=== PATIENT | female | born 1985 ===

== ENCOUNTER 2017-08-07 09:00 | Emergency (ER) | payer OTHER ==
[2017-08-07 09:11] VITALS: O2SAT 98
[2017-08-07 09:12] VITALS: BMI 24.2
[2017-08-07 09:41] LABS: HCG,QUALITATIVE URINE NEGATIVE (NEGATIVE)
[2017-08-07 09:45] LABS: SQUAMOUS EPITHIAL 1 /hpf (0-5); URINE BILIRUBIN NEGATIVE (NEGATIVE); URINE BLOOD NEGATIVE (NEGATIVE); URINE CLARITY Clear (Clear); URINE COLOR Straw (YELLOW); URINE GLUCOSE (UA) NORMAL (Normal); URINE LEUKOCYTE ESTERASE NEG Leu/uL (Negative); URINE PROTEIN NEGATIVE (NEGATIVE); URINE UROBILINOGEN NORMAL mg/dL (0.2-1.0)
[2017-08-07] MEDS ORDERED: Sodium Chloride 0.9% 1,000 ML IV ONE (10:10)
[2017-08-07] MEDS ORDERED: DiphenhydrAMINE 50 mg/ml Inj IVP STA (10:11)
[2017-08-07] MEDS ORDERED: DiphenhydrAMINE 50 mg/ml Inj ONE (10:24)
[2017-08-07] MEDS ORDERED: Sodium Chloride 0.9% 1,000 ML ONE (10:24)
--- NOTE | 2017-08-07 10:31 | RAD ---
PROCEDURE: Radiographs of the chest and abdomen (obstructive series) HISTORY: Abdominal pain and nausea. COMPARISON: No prior. TECHNIQUE: AP radiograph of the chest, with upright and supine radiographs of the abdomen. FINDINGS: CHEST: Lungs: Clear. Cardiovascular: Normal size heart. No pulmonary vascular congestion. Pleura: No pleural fluid. No pneumothorax. Other findings: None. ABDOMEN AND PELVIS: Bowel: Unremarkable bowel gas pattern. No evidence of mechanical obstruction. Free air: None. Bones: Minor levoscoliosis centered at the at L3-L4 level. The. Other findings: None. IMPRESSION: Unremarkable radiographs of chest and abdomen. No evidence of mechanical bowel obstruction.
--- NOTE | 2017-08-07 10:46 | C.PDOC ---
History Of Present Illness The patient reports several month history of intermittent dizziness which is associated with headache, nausea, and vomiting. Patient reports that the dizziness is worsened with head movement and described as the room spinning. The patient also reports 2 week history of urinary urgency and frequency with some lower abdominal pain. Denies fever, head trauma, diarrhea, back pain, vision changes, numbness, weakness. Time Seen by Provider: 08/07/17 09:13 Chief Complaint (Nursing): Headache History Per: Patient History/Exam Limitations: no limitations Onset/Duration Of Symptoms: Intermittent Episodes Current Symptoms Are (Timing): Still Present Quality: "Pain" Recent travel outside of the [place]: No Past Medical History Reviewed: Historical Data, Nursing Documentation, Vital Signs Vital Signs: Last Vital Signs Temp 98 F 08/07/17 13:06 Pulse 78 08/07/17 13:06 Resp 18 08/07/17 13:06 BP 106/74 08/07/17 13:06 Pulse Ox 98 08/07/17 13:06 - Medical History PMH: No Chronic Diseases Surgical History: No Surg Hx Family History: States: No Known Family Hx - Social History Hx Alcohol Use: No Hx Substance Use: No - Immunization History Hx Tetanus Toxoid Vaccination: No Hx Influenza Vaccination: No Review Of Systems Except As Marked, All Systems Reviewed And Found Negative. Physical Exam - Physical Exam Appears: Non-toxic, No Acute Distress Skin: Normal Color, Warm, No Rash Head: Atraumatic, Normacephalic Eye(s): bilateral: Normal Inspection, PERRL, EOMI Ear(s): Bilateral: Normal Oral Mucosa: Moist Throat: No Erythema, No Exudate Neck: Normal ROM, Supple Chest: Symmetrical, No Tenderness Cardiovascular: Rhythm Regular, No Friction Rub, No Murmur Respiratory: Normal Breath Sounds, No Rales, No Rhonchi, No Stridor, No Wheezing Gastrointestinal/Abdominal: Bowel Sounds, Soft, No Tenderness, No Guarding, No Rebound, No Hernia Back: Normal Inspection, No CVA Tenderness Extremity: Normal ROM, No Swelling Neurological/Psych: Oriented x3, Normal Speech, Normal Motor Gait: Steady ED Course And Treatment - Laboratory Results Result Diagrams: 08/07/17 10:40 08/07/17 10:40 O2 Sat by Pulse Oximetry: 98 (on RA) Pulse Ox Interpretation: Normal Medical Decision Making Medical Decision Making: On r-exam, the patient reports improvement of symptoms. Lungs are CTA, heart is RRR, abdomen is soft, non-tender and tolerating po well. Ambulatory in the ED with steady gait. Disposition - Disposition Referrals: [facility] [Outside] Disposition: HOME/ ROUTINE Disposition Time: 12:54 Condition: GOOD Additional Instructions: Follow up with the medical doctor within 1-2 days. Return if worsened. Prescriptions: Meclizine HCl 25 mg PO TID PRN #21 tablet PRN Reason: Dizziness Instructions: Vertigo (a Type of Dizziness) Forms: [employer] ([place] Islander) Print Language: EQUATORIAL GUINEAN - Clinical Impression Clinical Impression: Vertigo
[2017-08-07 10:48] LABS: BASO % 0.6 % (0.0-2.0); EOS % 0.7 % (0.0-4.0); HEMOGLOBIN 13.3 g/dL (11.0-16.0); LYMPH # 2.1 K/uL (1.0-4.3); LYMPH % 30.9 % (20.0-40.0); MEAN CELL VOLUME 85.5 fL (81.0-99.0); MEAN CORPUSCULAR HEMOGLOBIN 29.9 pg (27.0-31.0); MEAN PLATELET VOLUME 7.9 fL (7.2-11.7); MONO # 0.3 K/uL (0.0-0.8); MONO % 4.6 % (0.0-10.0); NEUT # 4.2 K/uL (1.8-7.0); NEUT % 63.2 % (50.0-75.0); RBC 4.44 Mil/uL (3.80-5.20); RED CELL DISTRIBUTION WIDTH 13.4 % (11.5-14.5); WHITE BLOOD COUNT 6.7 K/uL (4.8-10.8)
[2017-08-07 11:07] LABS: ALB/GLOB RATIO 1.3 (1.0-2.1); ALBUMIN 4.5 g/dL (3.5-5.0); ALT/SGPT 17 U/L (9-52); AST/SGOT 26 U/L (14-36); BLOOD UREA NITROGEN 13 mg/dL (7-17); CALCIUM 9.5 mg/dl (8.6-10.4); GFR AFRICAN-AMERICAN > 60; GFR NON-AFRICAN AMERICAN > 60; LIPASE 100 U/L (23-300)
--- NOTE | 2017-08-07 12:00 | CT ---
PROCEDURE: CT scan brain dated 08/07/2017 HISTORY: Dizziness, headache several months COMPARISON: No prior study available for comparison TECHNIQUE: Axial computed tomography images were obtained through the head/brain without intravenous contrast. Radiation dose: Total exam DLP = mGy-cm. This CT exam was performed using one or more of the following dose reduction techniques: Automated exposure control, adjustment of the mA and/or kV according to patient size, and/or use of iterative reconstruction technique. . . FINDINGS: HEMORRHAGE: No intracranial hemorrhage. BRAIN: No mass effect or edema. No atrophy or chronic microvascular ischemic changes. VENTRICLES: No obstructive the hydrocephalus. CALVARIUM: There are no acute calvarial fractures. PARANASAL SINUSES: Polypoid mucous retention cysts are seen both maxillary antra. MASTOID AIR CELLS: Unremarkable as visualized. No inflammatory changes. OTHER FINDINGS: None. IMPRESSION: No acute intracranial hemorrhage.
[2017-08-07 13:07] VITALS: BP 106/74; PULSE 78; RESP 18; TEMP 98
== END 2017-08-07 13:07 | disposition home or self-care (01) ==
LOC: C.ER 09:00
DX: R42 Dizziness and giddiness (principal)
CPT/HCPCS: 70450; 74022; 80053; 81001; 83690; 84703; 85025; 96374; 96375; 99285; J1200; J1885; J2765; J7040

== ENCOUNTER 2017-09-18 11:36 | Emergency (ER) | payer OTHER ==
[2017-09-18 11:36] VITALS: BMI 24.2
[2017-09-18 11:54] VITALS: O2SAT 98
[2017-09-18 12:30] LABS: HCG,QUALITATIVE URINE NEGATIVE (NEGATIVE)
[2017-09-18 12:33] LABS: SQUAMOUS EPITHIAL 3 /hpf (0-5); URINE BACTERIA RARE (<OCC); URINE BILIRUBIN NEGATIVE (NEGATIVE); URINE BLOOD 2+ (NEGATIVE); URINE CLARITY Clear (Clear); URINE COLOR Yellow (YELLOW); URINE GLUCOSE (UA) NORMAL (Normal); URINE LEUKOCYTE ESTERASE NEG Leu/uL (Negative); URINE PROTEIN NEGATIVE (NEGATIVE); URINE UROBILINOGEN NORMAL mg/dL (0.2-1.0)
--- NOTE | 2017-09-18 13:17 | C.PDOC ---
History Of Present Illness Patient presents to ED with c/o intermittent dizziness since yesterday associated with ear pain, tingling in hands and blurry vision. Patient was previously seen at ED on 08/07/17 for same symptoms and diagnosed with Vertigo. Patient denies abdominal pain, vomiting, head injury or any other complaints at this time. Time Seen by Provider: 09/18/17 12:07 Chief Complaint (Nursing): Dizziness/Lightheaded History Per: Patient History/Exam Limitations: no limitations Onset/Duration Of Symptoms: Days Current Symptoms Are (Timing): Still Present Past Medical History Reviewed: Historical Data, Nursing Documentation, Vital Signs Vital Signs: Last Vital Signs Temp 98.5 F 09/18/17 14:30 Pulse 57 L 09/18/17 14:30 Resp 18 09/18/17 14:30 BP 100/60 09/18/17 14:30 Pulse Ox 98 09/18/17 14:33 - Medical History PMH: No Chronic Diseases Surgical History: No Surg Hx Family History: States: No Known Family Hx - Social History Hx Alcohol Use: No Hx Substance Use: No - Immunization History Hx Tetanus Toxoid Vaccination: No Hx Influenza Vaccination: No Review Of Systems Constitutional: Negative for: Fever, Chills Eyes: Positive for: Vision Change ENT: Positive for: Ear Pain Gastrointestinal: Negative for: Nausea, Vomiting Skin: Negative for: Rash Neurological: Positive for: Dizziness. Negative for: Weakness, Numbness, Headache Physical Exam - Physical Exam Appears: Non-toxic, No Acute Distress Skin: Warm, Dry, No Rash Head: Atraumatic, Normacephalic Eye(s): bilateral: Normal Inspection (No nystagmus) Ear(s): Bilateral: Normal Oral Mucosa: Moist Throat: Normal, No Erythema, No Exudate Neck: Supple Cardiovascular: Rhythm Regular Respiratory: Normal Breath Sounds, No Rales, No Rhonchi, No Wheezing Gastrointestinal/Abdominal: Soft, No Tenderness, No Guarding, No Rebound Extremity: Normal ROM, Capillary Refill (<2 seconds) Neurological/Psych: Oriented x3, Normal Speech, Normal Cognition, Normal Motor, Normal Sensation ED Course And Treatment O2 Sat by Pulse Oximetry: 98 (RA) Pulse Ox Interpretation: Normal Progress Note: On re-exam, the patient reports improvement of symptoms. Lungs are CTA, heart is RRR, abdomen is soft, non-tender and the patient is tolerating PO well. Ambulatory in the ED with steady gait. Follow up with the medical doctor within 1-2 days. Return if worsened. Disposition - Disposition Referrals: [facility] [Outside] Disposition: HOME/ ROUTINE Disposition Time: 14:32 Condition: GOOD Additional Instructions: Follow up with the medical doctor/clinic within 1-2 days without fail. Return if worsened. 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 - Scribe Statement The provider has reviewed the documentation as recorded by the Ezequiel Dotson All medical record entries made by the Ezequiel were at my direction and personally dictated by me. I have reviewed the chart and agree that the record accurately reflects my personal performance of the history, physical exam, medical decision making, and the department course for this patient. I have also personally directed, reviewed, and agree with the discharge instructions and disposition.
[2017-09-18 14:31] VITALS: BP 100/60; PULSE 57; RESP 18; TEMP 98.5
== END 2017-09-18 14:42 | disposition home or self-care (01) ==
LOC: C.ER 11:36
DX: R42 Dizziness and giddiness (principal)

== ENCOUNTER 2017-09-25 11:30 | Emergency (ER) | payer OTHER ==
[2017-09-25 11:43] VITALS: BMI 25.4
[2017-09-25 11:48] VITALS: TEMP 98.4
[2017-09-25] MEDS ORDERED: Sodium Chloride 0.9% 1,000 ML IV ONE (13:16)
[2017-09-25] MEDS ORDERED: Sodium Chloride 0.9% 1,000 ML ONE (13:26)
[2017-09-25 13:41] LABS: EOS # 0.1 K/uL (0.0-0.7); MEAN CORPUSCULAR HEMOGLOBIN 29.8 pg (27.0-31.0); MONO # 0.4 K/uL (0.0-0.8); NEUT # 4.3 K/uL (1.8-7.0)
[2017-09-25 13:44] LABS: BASO % 0.6 % (0.0-2.0); EOS % 1.9 % (0.0-4.0); HEMOGLOBIN 13.3 g/dL (11.0-16.0); LYMPH # 1.7 K/uL (1.0-4.3); LYMPH % 25.8 % (20.0-40.0); MEAN CELL VOLUME 85.9 fL (81.0-99.0); MEAN CORPUSCULAR HGB CONC 34.7 g/dL (33.0-37.0); MEAN PLATELET VOLUME 7.7 fL (7.2-11.7); MONO % 5.8 % (0.0-10.0); NEUT % 65.9 % (50.0-75.0); RBC 4.46 Mil/uL (3.80-5.20); RED CELL DISTRIBUTION WIDTH 13.6 % (11.5-14.5); WHITE BLOOD COUNT 6.5 K/uL (4.8-10.8)
--- NOTE | 2017-09-25 14:15 | C.PDOC ---
History Of Present Illness 1y /o female presents to the ER complaining of dizziness which has been present for the past 1 week. Patient states that she feels a sensation of vertigo. Patient reports that she was evaluated in [facility] several days ago. She had negative labwork and Head CT. Patient has been taking Meclizine without relief. Denies having fever and other complaints at this time. Time Seen by Provider: 09/25/17 13:07 Chief Complaint (Nursing): Dizziness/Lightheaded History Per: Patient History/Exam Limitations: no limitations Onset/Duration Of Symptoms: Days Current Symptoms Are (Timing): Still Present Severity: Moderate Past Medical History Reviewed: Historical Data, Nursing Documentation, Vital Signs Vital Signs: Last Vital Signs Temp 98.4 F 09/25/17 15:37 Pulse 80 09/25/17 15:37 Resp 18 09/25/17 15:37 BP 118/82 09/25/17 15:37 Pulse Ox 100 09/25/17 15:37 - Medical History PMH: No Chronic Diseases Other Surgeries: Hx of surgeries Family History: States: No Known Family Hx - Social History Hx Alcohol Use: No Hx Substance Use: No - Immunization History Hx Tetanus Toxoid Vaccination: No Hx Influenza Vaccination: No Review Of Systems Except As Marked, All Systems Reviewed And Found Negative. Constitutional: Negative for: Fever, Chills Neurological: Positive for: Dizziness Physical Exam - Physical Exam Appears: Non-toxic, No Acute Distress Skin: Normal Color, Warm, Dry Head: Atraumatic, Normacephalic Eye(s): bilateral: Normal Inspection, PERRL, EOMI Nose: Normal Oral Mucosa: Moist Neck: Supple Chest: Symmetrical Cardiovascular: Rhythm Regular Respiratory: Normal Breath Sounds, No Rales, No Rhonchi, No Wheezing Gastrointestinal/Abdominal: Normal Exam, Soft, No Tenderness, No Guarding, No Rebound Neurological/Psych: Oriented x3, Normal Speech ED Course And Treatment - Laboratory Results Result Diagrams: 09/25/17 13:38 09/25/17 13:38 O2 Sat by Pulse Oximetry: 99 (RA) Pulse Ox Interpretation: Normal Medical Decision Making Medical Decision Making: dizziness/vertigo- Plan: ro metabolic infectious etiollogy --Labs --UA --Meclizine PO --Zofran IV --IV Fluids labs neg. recent head ct neg. pt states feels well for dc. Disposition - Disposition Referrals: [facility] [Outside] [facility] [Outside] Daniel Zepeda MD [Staff Provider] - Kyle Llamas MD [Staff Provider] - Disposition: HOME/ ROUTINE Disposition Time: 03:00 Condition: STABLE Additional Instructions: please follow up with specialist. return to er with worsening symptoms or concerns. Prescriptions: Meclizine [Meclizine*] 25 mg PO Q6 PRN #30 tab PRN Reason: Dizziness Instructions: Vertigo (a Type of Dizziness) (DC), Dizziness, Nonvertigo, (DC) Forms: [employer] (Pakistani) Print Language: KHMER - Clinical Impression Clinical Impression: Dizziness - Scribe Statement The provider has reviewed the documentation as recorded by the Gomezibe Neel Chi Provider Attestation: All medical record entries made by the Gomezibe were at my direction and personally dictated by me. I have reviewed the chart and agree that the record accurately reflects my personal performance of the history, physical exam, medical decision making, and the department course for this patient. I have also personally directed, reviewed, and agree with the discharge instructions and disposition.
[2017-09-25 14:26] LABS: ALB/GLOB RATIO 1.6 (1.0-2.1); ALBUMIN 4.7 g/dL (3.5-5.0); ALT/SGPT 46 U/L (9-52); AST/SGOT 36 U/L (14-36); BLOOD UREA NITROGEN 11 mg/dL (7-17); CALCIUM 9.4 mg/dl (8.6-10.4); GFR AFRICAN-AMERICAN > 60; GFR NON-AFRICAN AMERICAN > 60
[2017-09-25 15:10] LABS: SQUAMOUS EPITHIAL 1 /hpf (0-5); URINE BACTERIA RARE (<OCC); URINE BILIRUBIN NEGATIVE (NEGATIVE); URINE BLOOD NEGATIVE (NEGATIVE); URINE CLARITY Clear (Clear); URINE COLOR Yellow (YELLOW); URINE GLUCOSE (UA) NORMAL (Normal); URINE LEUKOCYTE ESTERASE NEG Leu/uL (Negative); URINE PROTEIN NEGATIVE (NEGATIVE); URINE UROBILINOGEN NORMAL mg/dL (0.2-1.0)
[2017-09-25 15:14] LABS: HCG,QUALITATIVE URINE NEGATIVE (NEGATIVE)
[2017-09-25 15:38] VITALS: BP 118/82; PULSE 80; RESP 18
[2017-09-25 21:33] VITALS: O2SAT 99
== END 2017-09-25 15:38 | disposition home or self-care (01) ==
LOC: C.ER 11:30
DX: R42 Dizziness and giddiness (principal)
CPT/HCPCS: 80053; 81001; 84703; 85025; 96361; 96374; 99285; J2405; J7030

== ENCOUNTER 2018-08-03 09:15 | Emergency (ER) | payer OTHER ==
[2018-08-03 09:16] VITALS: BMI 25.4
[2018-08-03] MEDS ORDERED: Sodium Chloride 0.9% 500 ML IV ONE (10:17)
[2018-08-03] MEDS ORDERED: Sodium Chloride 0.9% 1,000 ML ONE ×2 (10:29→11:41)
[2018-08-03 10:39] LABS: HEMOGLOBIN 12.5 g/dL (11.0-16.0); MEAN CELL VOLUME 87.1 fL (81.0-99.0); MEAN CORPUSCULAR HEMOGLOBIN 30.3 pg (27.0-31.0); MEAN CORPUSCULAR HGB CONC 34.8 g/dL (33.0-37.0); MEAN PLATELET VOLUME 7.6 fL (7.2-11.7); RBC 4.12 Mil/uL (3.80-5.20); RED CELL DISTRIBUTION WIDTH 13.4 % (11.5-14.5); WHITE BLOOD COUNT 6.3 K/uL (4.8-10.8)
[2018-08-03 10:55] LABS: ALB/GLOB RATIO 1.4 (1.0-2.1); ALBUMIN 4.4 g/dL (3.5-5.0); ALT/SGPT 22 U/L (9-52); AST/SGOT 26 U/L (14-36); BLOOD UREA NITROGEN 14 mg/dL (7-17); CALCIUM 9.2 mg/dl (8.6-10.4); GFR NON-AFRICAN AMERICAN > 60
--- NOTE | 2018-08-03 10:57 | C.PDOC ---
History Of Present Illness Patient complains of feeling dizzy and frontal headache this morning when getting her children ready for school. She describes the room spinning whenever she would stand or bend over. She reports similar symptoms last year and was di agnosed with Vertigo she does not have any more medicine. She states she has not eaten anything yet today. She denies fever, neck pain, vision changes, extremity weakness or numbness Time Seen by Provider: 08/03/18 09:51 Chief Complaint (Nursing): Dizziness/Lightheaded History Per: Patient History/Exam Limitations: no limitations Onset/Duration Of Symptoms: Hrs Current Symptoms Are (Timing): Still Present Past Medical History Reviewed: Historical Data, Nursing Documentation, Vital Signs Vital Signs: Last Vital Signs Temp 98.5 F 08/03/18 09:30 Pulse 79 08/03/18 09:30 Resp 16 08/03/18 09:30 BP 99/62 L 08/03/18 09:30 Pulse Ox 99 08/03/18 09:30 Primary Care Provider: FAMILY PROVIDER,NO - Medical History PMH: Comment Only: Migraine (DENIES 08/03/18) Surgical History: Family History: States: Unknown Family Hx - Social History Hx Alcohol Use: No Hx Substance Use: No - Immunization History Hx Tetanus Toxoid Vaccination: No Hx Influenza Vaccination: Yes Review Of Systems Constitutional: Negative for: Fever, Chills Eyes: Negative for: Vision Change Musculoskeletal: Negative for: Neck Pain Neurological: Positive for: Headache, Dizziness. Negative for: Weakness, Numbness Physical Exam - Physical Exam Appears: Non-toxic, No Acute Distress Skin: Warm, Dry, No Rash Head: Atraumatic, Normacephalic Eye(s): bilateral: Normal Inspection, PERRL, EOMI, Other (no nystagmus) Ear(s): Bilateral: Normal Nose: Normal Oral Mucosa: Moist Tongue: Normal Appearing Lips: Normal Appearing Teeth: Normal Dentition Gingiva: Normal Appearing Throat: Normal, No Erythema, No Exudate Neck: Supple Chest: Symmetrical Cardiovascular: Rhythm Regular Respiratory: Normal Breath Sounds, No Rales, No Rhonchi, No Wheezing Gastrointestinal/Abdominal: Soft, No Tenderness Extremity: Bilateral: Atraumatic, Normal Color And Temperature, Normal ROM Pulses: Left Radial: Normal, Right Radial: Normal Neurological/Psych: Oriented x3, Normal Speech, Normal Cranial Nerves, No Cerebellar Signs, Normal Motor, Normal Sensation Gait: Steady ED Course And Treatment - Laboratory Results Result Diagrams: 08/03/18 10:33 08/03/18 10:33 Lab Interpretation: No Acute Changes ECG: Interpreted By Me, Viewed By Me Interpretation Of ECG: Slight left axis deviation Rate From EC O2 Sat by Pulse Oximetry: 99 (RA) Pulse Ox Interpretation: Normal Medical Decision Making Medical Decision Making: impression: Vertigo plan: * cbc * cmp * UA * UCG * IV NS * IV Reglan Progress: Labs reviewed by me and shows no acute findings. Patient remained afebrile in no acute distress and reports feeling better. BP is still on low side. Patient states sometimes it is low. Will order additional fluids ond re-evaluate. 1244 On second re-evaluation she is seated comfortably in no distress. BP is slightly improved. Note the patient is petite in size. She reports no dizziness, headache, or vision changes at this time. She has normal neuro exam. She is ambulatory with steady gait. Patient stable for discharge with Rx Antivert Disposition Counseled Patient/Family Regarding: Diagnosis, Need For Followup, Rx Given - Disposition Referrals: [facility] [Outside] [facility] [Outside] Disposition: HOME/ ROUTINE Disposition Time: 11:33 Condition: STABLE Additional Instructions: Tienes vrtigo kirby medicamentos para el mareo segn sea necesario cada 8 horas beber lquidos y descansar Puede kirby Tylenol o Advil para cualquier dolor de rufino. 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 - Scribe Statement The provider has reviewed the documentation as recorded by the Scribe Abbey Simpson All medical record entries made by the Scribe were at my direction and personally dictated by me. I have reviewed the chart and agree that the record accurately reflects my personal performance of the history, physical exam, medical decision making, and the department course for this patient. I have also personally directed, reviewed, and agree with the discharge instructions and disposition.
[2018-08-03 11:24] VITALS: PULSE 70; RESP 20
[2018-08-03] MEDS ORDERED: Sodium Chloride 0.9% 1,000 ML IV ONE (11:36)
[2018-08-03 12:51] VITALS: BP 91/57; TEMP 98
[2018-08-03 12:57] VITALS: O2SAT 99
== END 2018-08-03 13:47 | disposition home or self-care (01) ==
LOC: C.ER 09:15
DX: R42 Dizziness and giddiness (principal)
CPT/HCPCS: 80053; 85027; 96360; 99285; J2765; J7030; J7040